=== PATIENT | female | born 1985 | race Caucasian/White ===

== ENCOUNTER → 2019-07-31 14:11 | Outpatient (BNVA) | payer OTHER, SELFPAY | PROVIDERS: Family Provider Family Medicine; PCP Family Medicine; Visit Provider Internal Medicine Rheumatology | DX: M25.562 Pain in left knee (principal); Z79.899 Other long term (current) drug therapy; Z11.59 Encounter for screening for other viral diseases; G89.29 Other chronic pain; M54.5 Low back pain; Z11.1 Encounter for screening for respiratory tuberculosis; M25.561 Pain in right knee; M25.522 Pain in left elbow; M25.521 Pain in right elbow; M25.512 Pain in left shoulder; M25.511 Pain in right shoulder; M25.552 Pain in left hip; M25.551 Pain in right hip; M25.572 Pain in left ankle and joints of left foot; M25.571 Pain in right ankle and joints of right foot; M25.531 Pain in right wrist; M25.532 Pain in left wrist | CPT/HCPCS: 36415; 73560; 73565; 80076; 81001; 82565; 85025; 85651; 86140; 86480; 86704; 86803; 86812; 87340; 99204 ==

== ENCOUNTER → 2019-09-01 15:20 | Outpatient (BNVA) | payer OTHER, SELFPAY | PROVIDERS: Family Provider Family Medicine; PCP Family Medicine; Visit Provider Internal Medicine Rheumatology | DX: R76.8 Other specified abnormal immunological findings in serum (principal); M19.90 Unspecified osteoarthritis, unspecified site; M16.0 Bilateral primary osteoarthritis of hip; N30.00 Acute cystitis without hematuria; G89.29 Other chronic pain; M54.5 Low back pain; Z79.899 Other long term (current) drug therapy | CPT/HCPCS: 99214 ==

== ENCOUNTER 2020-02-24 13:09 | Outpatient (CLI) | payer SELFPAY ==
--- NOTE | 2020-02-24 13:30 | CT_ITS ---
WS: [id number] CT PARANASAL SINUSES with contrast. HISTORY: CHRONIC SINUSITIS TECHNIQUE: Contiguous 2.5 mm axial images obtained through the sinuses. Images are reconstructed in s agittal and coronal planes. All CT scans at [facility] use at least one of these dose opt imization techniques: automated exposure control; mA and/or kV adjustment per patient size (includes targeted exams where dose is matched to clinical indication); or iterative reconstruction. DLP: 361.68 mGy-cm. COMPARISON: None available. Frontal sinuses: Normal. Sphenoid sinus: Normal. Ethmoid sinuses: Normal. Maxillary sinus: Normal. Ostiomeatal unit: Widely patent ostiomeatal units due to prior surgery. No soft tissue thickening. Mi ddle turbinates have been removed. No significant deviation of the nasal septum. No soft tissue masses or abnormal enhancement. Benign cervical chain lymph nodes. Largest at level 2 on the RIGHT measures [address]/CT sinus w con [id number] IMPRESSION: 1. No evidence for acute sinusitis or chronic sinusitis. 2. Prior sinus surgery with removal of the middle turbinates. No ostiomeatal u nit obstruction.
== END 2020-02-24 13:10 | disposition home or self-care (01) ==
LOC: RADWPI 13:19
PROVIDERS: PCP Family Medicine; Visit Provider Family Medicine
DX: J32.9 Chronic sinusitis, unspecified (principal)
CPT/HCPCS: 70487

== ENCOUNTER → 2024-05-27 08:34 | Outpatient (BNVA) | payer BC, SELFPAY | PROVIDERS: PCP Family Medicine; Visit Provider Podiatrist Foot & Ankle Surgery | DX: M79.671 Pain in right foot (principal); M25.871 Other specified joint disorders, right ankle and foot | CPT/HCPCS: 73630 ==

== ENCOUNTER → 2024-06-26 14:37 | Outpatient (BNVA) | payer BC, SELFPAY | PROVIDERS: PCP Family Medicine; Visit Provider Podiatrist Foot & Ankle Surgery | DX: M79.671 Pain in right foot (principal); M25.871 Other specified joint disorders, right ankle and foot | CPT/HCPCS: 73660 ==

== ENCOUNTER 2025-01-16 12:57 | Outpatient (CLI) | payer BC, SELFPAY ==
--- NOTE | 2025-01-16 13:08 | XR_ITS ---
WS: [id number] DEXA (DUAL ENERGY X-RAY ABSORPTIOMETRY) Bone mineral density was performed using a Channel M machine. HISTORY: ALF SYSTEMIC STEROID USER COMPARISON: None available. Lumbar spine BMD (L1-L4): 1.136 g/cm2 T score: -0.4 Z score: -0.9 Total hip BMD: Left: 0.871 g/cm2. T score: -1.1 Z score: -1.2 Right: 0.833 g/cm2. T score: -1.4 Z score: -1.5 10 year probability of a major osteoporotic fracture is 3.9%. XR/XR DEXA axial skeleton* [id number] IMPRESSION: OSTEOPENIA based upon the WHO classification for females.
== END 2025-01-16 12:58 | disposition home or self-care (01) ==
LOC: RAD 12:58
PROVIDERS: PCP Family Medicine; Visit Provider Nurse Practitioner Family
DX: Z13.820 Encounter for screening for osteoporosis (principal); M85.88 Other specified disorders of bone density and structure, other site
CPT/HCPCS: 77080